=== PATIENT | female | born 1955 | race Caucasian/White ===

== ENCOUNTER 2021-04-24 14:55 | Inpatient (IN) | payer MEDICARE, OTHER ==
[~2021-04-24] VITALS: Ht 162.6 cm; Wt 86.2 kg
[2021-04-24 15:20] LABS: HEMOGLOBIN 10.5 gm/dl (12.3-15.3); RED BLOOD COUNT 3.58 M/UL (4.00-5.10); WHITE BLOOD COUNT 14.8 K/UL (4.5-11.0)
[2021-04-25 07:17] LABS: WHITE BLOOD COUNT 12.2 K/UL (4.5-11.0)
[2021-04-25 07:22] LABS: RED BLOOD COUNT 3.16 M/UL (4.00-5.10)
[2021-04-25] MEDS ORDERED: CIPRO500 MG PO (15:44)
[2021-04-25] MEDS ORDERED: FLAGYL 250 MG250 MG PO (15:44)
[2021-04-25] MEDS ORDERED: FLUCONAZOLE50 MG PO (15:44)
== END 2021-04-25 17:05 | disposition left against medical advice (07) | DRG 445 ==
LOC: ER1 14:55 → MED SURG 4 18:35 → CDU 18:35 → MED SURG 4 22:04
PROVIDERS: Physician Assistant; Physician Assistant Medical; ADMIT Internal Medicine
DX: K81.0 Acute cholecystitis (principal); N17.9 Acute kidney failure, unspecified; Z20.822 Contact with and (suspected) exposure to COVID-19; N30.01 Acute cystitis with hematuria; B37.0 Candidal stomatitis; M84.459A Pathological fracture, hip, unspecified, initial encounter for fracture; I12.9 Hypertensive chronic kidney disease with stage 1 through stage 4 chronic kidney disease, or unspecified chronic kidney disease; N18.9 Chronic kidney disease, unspecified; B96.89 Other specified bacterial agents as the cause of diseases classified elsewhere; I95.9 Hypotension, unspecified; E87.6 Hypokalemia; M19.90 Unspecified osteoarthritis, unspecified site; D63.1 Anemia in chronic kidney disease; E88.09 Other disorders of plasma-protein metabolism, not elsewhere classified; Z90.49 Acquired absence of other specified parts of digestive tract; Z82.49 Family history of ischemic heart disease and other diseases of the circulatory system; Z83.3 Family history of diabetes mellitus; Z98.51 Tubal ligation status; Z88.8 Allergy status to other drugs, medicaments and biological substances; Z88.6 Allergy status to analgesic agent
CPT/HCPCS: 36415; 80053; 81001; 83690; 83735; 85025; 85027; 87040; 87077; 87086; 87186; 96374; 96375; 99285; J0360; J2185; J2270; J2405; J2543; J7030; U0002